=== PATIENT | male | born 2000 | race African-American/Black ===

== ENCOUNTER 2022-05-30 14:47 | Emergency (ER) | payer MEDICAID ==
[~2022-05-30] VITALS: Ht 170.2 cm; Wt 68.0 kg
[2022-05-30 14:50] VITALS: BP 127/80
[2022-05-30 15:30] LABS: BASOPHILS % 0.5 % (0.0-2.0); EOSINOPHILS % 0.4 % (0.0-5.0); HEMATOCRIT. 46.4 % (42.0-52.0); HEMOGLOBIN. 15.5 g/dL (14.0-18.0); LYMPHOCYTES % 26.6 % (20.0-50.0); MEAN CORPUSCULAR HEMOGLOBIN 27.2 pg (28.0-32.0); MEAN CORPUSCULAR VOLUME 81.6 fL (80.0-94.0); MEAN PLATELET VOLUME 10.3 fl (7.4-10.4); NEUTROPHILS % 67.5 % (40.0-76.0); PLATELET 231 x1000/uL (130-400); RED BLOOD CELL COUNT 5.69 mill/uL (4.7-6.1); RED CELL DISTRIBUTION WIDTH 14.3 % (11.6-14.6)
[2022-05-30 15:35] LABS: CHLORIDE 105 mEq/L (98-107)
== END 2022-05-30 17:37 | disposition home or self-care (01) ==
LOC: ER 14:47
DX: R06.00 Dyspnea, unspecified (principal); Z13.9 Encounter for screening, unspecified
CPT/HCPCS: 36415; 71045; 80053; 85025; 85379; 93005; 99285